=== PATIENT | female | born 2005 | race Caucasian/White ===

== ENCOUNTER 2024-01-14 17:40 | Emergency (ER) | payer BC, SELFPAY ==
[2024-01-14] VITALS (7 sets, daily range): BP systolic 114–134; BP diastolic 84–94; PULSE 98–124; RESP 16–20; TEMP 36.7–37.4; O2SAT 99–100
--- NOTE | 2024-01-14 17:45 | ECG_ITS ---
Test Date: 2024-01-14 17:53:00 Measurements Intervals [place] Rate: 122 P: 73 NC: 135 QRS: 81 QRSD: 83 T: 45 QT: 307 QTc: 438 Interpretive Statements SINUS TACHYCARDIA INCOMPLETE RIGHT BUNDLE BRANCH BLOCK No previous ECG available for comparison Electronically Signed On 01-15-2024 09:25:08 CDT by Keon Lackey M.D.
[2024-01-14] MEDS: SODIUM CHLORIDE 0.9% IV 1,000 ML 999 ML IV CONT ×2 (18:30→19:27)
--- NOTE | 2024-01-14 18:31 | ED.ARRPALP ---
HPI - Arrhythmia/Palpitations General Chief Complaint: Arrhythmia/Palpitations Stated Complaint: racing heart rate Time Seen by Provider: 01/14/24 18:13 Source: patient and family Mode of arrival: ambulatory Limitations: no limitations History of Present Illness HPI narrative: This is a 18 year old female that presents to the ER for racing heart rate. Reports she was walking around campus today and noted her heart rate was elevated. She has history of anxiety and eating disorder. Was recently started on hormone pills to induce a menstrual cycle as she has not had one in 5 months. Denies chest pain, shortness of breath, lower extremity edema. Related Data Allergies Allergy/AdvReac Type Severity Reaction Status Date / Time No Known Allergies Allergy Verified 01/14/24 17:40 Review of Systems Review of Systems: CONSTITUTIONAL: Denies fever CARDIOVASCULAR: Reports palpitations. Denies chest pain, or edema. RESPIRATORY: Denies cough or dyspnea. All systems reviewed & are unremarkable except as noted in HPI and below PMFSH Past Medical History Medical History (Updated 01/14/24 @ 21:02 by Janet Lua PA-C) History of anxiety History of eating disorder Social History Social History (Updated 01/14/24 @ 18:34 by Janet Lua PA-C) Smoking status: Current every day smoker Tobacco type: e-cigarettes/vaping Exam Narrative: GENERAL: Anxious, thin, and in no acute distress. HEAD: Normocephalic, atraumatic. EYES: EOMI. ENT: Nares clear, no rhinorrhea or epistaxis. Mucous membranes moist. Oropharynx without tonsillar hypertrophy exudate or other lesions. NECK: Supple. No adenopathy or masses. CHEST: Clear to auscultation. No respiratory distress. No wheezes rales or rhonchi HEART: Tachycardic, regular rhythm. No murmur heard. Normal peripheral pulses. EXTREMITIES: Normal range of motion. No edema. SKIN: Warm, dry, no rash. NEURO: No focal deficits. Alert and oriented x3. PSYCH: Anxious, withdrawn Course Course Emergency Course: patient and family updated on workup and agree with plan of care Vital Signs Vital signs: Vital Signs Temperature 99.4 F 01/14/24 17:51 Pulse Rate 124 H 01/14/24 17:51 Respiratory Rate 20 01/14/24 17:51 Blood Pressure 129/94 H 01/14/24 17:51 Pulse Oximetry 100 01/14/24 17:51 Oxygen Delivery Room Air 01/14/24 17:51 Temperature 98.8 F 01/14/24 19:31 Pulse Rate 118 H 01/14/24 20:45 Respiratory Rate 18 01/14/24 20:45 Blood Pressure 114/86 01/14/24 20:45 Pulse Oximetry 99 01/14/24 20:45 Oxygen Delivery Room Air 01/14/24 17:51 MDM - Arrhythmia/Palpitations MDM Narrative Medical decision making narrative: Patient presents to the emergency department for elevated heart rate. Does report history worsening anxiety recently. No other focal symptoms. Initially tachycardic in the 120s to 130s systolic. EKG shows sinus tachycardia. CBC with mild hemoconcentration. Metabolic panel without concerning findings. TSH is normal. D-dimer is not elevated. Urine also with some ketones. Patient was hydrated with 2 L of IV fluids with improvement. Most recent heart rate 107. Patient and family updated on her workup and agree with plan of care. Instructed to have close follow-up with primary provider for further evaluation. She was given warnings to return to the ER Differential Diagnosis Differential diagnosis: Likely palpitations, anxiety, sinus tachycardia and artial fibrillation Lab Data Attestation: I reviewed the patient's lab results. 01/14/24 18:33 01/14/24 18:33 Labs: Lab Results 01/14/24 01/14/24 01/14/24 Range/Units 18:33 19:10 19:29 WBC 7.5 (4.5-10.0) K/mm3 RBC 5.16 (4.2-5.4) M/mm3 Hgb 15.5 H (12.0-15.0) g/dL Hct 45.1 (37.0-47.0) % MCV 87.4 (80-100) fl MCH 30.0 (26-34) pg MCHC 34.4 (32-36) g/dl RDW 12.3 (11.5-14.5) % Plt Count 240 (150-375)
[2024-01-14 18:41] LABS: Basophils Absolute Auto 0.1 K/mm3 (0.0-0.1); Basophils Percent Auto 1.1 % (0.2-1.2); Eosinophils Absolute Auto 0.2 K/mm3 (0-0.3); Eosinophils Percent Auto 2.8 % (0-4.4); Hematocrit 45.1 % (37.0-47.0); Hemoglobin 15.5 g/dL (12.0-15.0); Immature Granulocyte Absolute 0.01 K/mm3 (0.00-0.031); Immature Granulocyte Percent A 0.1 % (0-0.5); Lymphocytes Absolute Auto 1.58 K/mm3 (0.9-3.2); Mean Corpuscular HGB Conc 34.4 g/dl (32-36); Mean Corpuscular Volume 87.4 fl (80-100); Mean Platelet Volume 9.6 fl (7.4-10.4); Monocytes Absolute Auto 0.4 K/mm3 (0.1-0.6); Monocytes Percent Auto 5.7 % (2.6-8.5); Neutrophils Absolute Auto 5.2 K/mm3 (1.3-6.7); Neutrophils Percent Auto 69.3 % (45.5-73.1); Platelet Count Result 240 k/mm3 (150-375); Red Blood Count 5.16 M/mm3 (4.2-5.4); Red Cell Distribution Width 12.3 % (11.5-14.5); White Blood Count 7.5 K/mm3 (4.5-10.0)
[2024-01-14 18:49] LABS: Alanine Aminotransferase 19 U/L (6-35); Alkaline Phosphatase 56 U/L (38-126); Anion Gap 12 mmol/L (4-12); Aspartate Amino Transferase 27 U/L (14-36); Bilirubin,Total 0.5 mg/dL (0.2-1.3); Blood Urea Nitrogen 9 mg/dL (7-17); Calcium 9.6 mg/dL (8.4-10.2); Carbon Dioxide 24 mmol/L (22-30); Chloride 102 mmol/L (98-107); Estimated CRCL calculation 63 ml/min; Estimated Glomerular Filt Rate > 60; Glucose 95 mg/dL (65-110); Potassium 3.8 mmol/L (3.4-5.0); Sodium 138 mmol/L (137-145)
[2024-01-14 18:59] LABS: D Dimer 0.28 ug/mL (<0.48)
[2024-01-14 19:31] LABS: BEDSIDEPREGUCG Negative
[2024-01-14 20:05] LABS: Bacteria Urine None Seen /hpf; Non Pathogenic Casts 0-2; RBC Urine 0-2 /hpf (0-2); Squamous Epithelial Cell Urine Occasional /hpf (Few); WBC Urine 0-5 /hpf (0-3)
[2024-01-14 20:24] LABS: Add Urine Microscopic? NO; Appearance Urine Clear (Clear); Bilirubin Urine Negative (Negative); Blood Urine Negative (Negative); Color Urine Yellow (Yellow); Glucose Urine UA Negative (Negative); Ketones Urine Trace mg/dL (Negative); Leukocyte Esterase Ur Negative LEU/UL (Negative); Nitrate Urine Negative (Negative); Protein Urine Negative (Negative); Specific Grav Ur 1.006 (1.001-1.035); Urobilinogen Urine 0.2 mg/dL (<2.0); pH Urine 6.5 (5.0-9.0)
== END 2024-01-14 21:38 | disposition home or self-care (01) ==
PROVIDERS: Emergency Medicine; Emergency Provider Physician Assistant
DX: R00.0 Tachycardia, unspecified (principal); E86.0 Dehydration; F41.9 Anxiety disorder, unspecified; F17.290 Nicotine dependence, other tobacco product, uncomplicated; I45.10 Unspecified right bundle-branch block
CPT/HCPCS: 36415; 80053; 81003; 81025; 84443; 85025; 85380; 93005; 96360; 96361; 99284; J7030